=== PATIENT | female | born 1980 | race Asian ===

== ENCOUNTER 2017-07-04 16:18 | Outpatient (CLI) | payer BC | END 2017-07-04 20:19 | disposition home or self-care (01) | LOC: SRD 16:18 | PROVIDERS: ATTEND Family Medicine | DX: R76.11 Nonspecific reaction to tuberculin skin test without active tuberculosis (principal) | CPT/HCPCS: 71045 ==

== ENCOUNTER 2017-09-26 17:45 | Inpatient (IN) | payer BC ==
[~2017-09-26] VITALS: Ht 147.3 cm; Wt 63.5 kg
[2017-09-26 18:28] VITALS: BP_SYST 123
[2017-09-26] MEDS ORDERED: LR 1,000 ML IV ONE (19:08)
[2017-09-26] MEDS ORDERED: OXYTOCIN/0.9 % SODIUM CHLORIDE 1,000 ML IV SCH (19:08)
[2017-09-26] MEDS ORDERED: TERBUTALINE SULFATE 1 MG/ML VIAL SUBCUT ONE (19:15)
[2017-09-26] MEDS ORDERED: NALBUPHINE HCL 10 MG/ML AMP IVP PRN (19:15)
[2017-09-26] MEDS: LR 1,000 ML IV SCH (19:45)
[2017-09-26 19:57] LABS: BASOPHILS % (AUTO) 0.3 % (0.0-2.0); EOSINOPHILS # (AUTO) 0.1 K/uL (0.0-0.4); EOSINOPHILS % (AUTO) 1.5 % (0.0-4.0); HEMATOCRIT 31.9 % (36-48); LYMPHOCYTES # (AUTO) 1.5 K/uL (1.0-5.5); LYMPHOCYTES % (AUTO) 16.2 % (20.5-51.5); MEAN CORPUSCULAR HEMOGLOBIN 22 pg (27-31); MEAN CORPUSCULAR HGB CONC 31 % (32-36); MEAN CORPUSCULAR VOLUME 71 fL (79.0-98.0); MONOCYTES # (AUTO) 0.6 K/uL (0.0-1.0); MONOCYTES % (AUTO) 6.3 % (1.7-9.3); NEUTROPHILS % (AUTO) 75.7 % (40.0-70.0); PLATELET COUNT (AUTO) 299 K/uL (130-430); RED BLOOD CELL COUNT(AUTO) 4.49 MIL/uL (4.2-6.2); RED CELL DISTRIBUTION WIDTH 14.5 % (9.0-15.0); WHITE BLOOD COUNT (AUTO) 9.2 K/uL (4.8-10.8)
[2017-09-26] MEDS ORDERED: fentaNYL CITRATE/PF 100 MCG/2 ML AMP ONE (20:24)
[2017-09-26] MEDS ORDERED: ROPIVACAINE 0.2% 100 ML ONE (20:25)
[2017-09-26] MEDS ORDERED: LR 500 ML IV ONE (20:41)
[2017-09-26] MEDS ORDERED: FENT2mCg/mL-ROPIVA0.2%/NS EPID 150 ML EP SCH (20:45)
[2017-09-27] MEDS: LR 1,000 ML IV SCH (02:40)
[2017-09-27] MEDS ORDERED: OXYTOCIN/0.9 % SODIUM CHLORIDE 1,000 ML IV SCH (06:04)
[2017-09-27] MEDS ORDERED: OXYTOCIN/0.9 % SODIUM CHLORIDE 1,000 ML IV ONE (06:04)
[2017-09-27] MEDS ORDERED: HYDROCORTISONE 0.5%, 28.35 GM TOPICAL CREAM TP PRN (06:15)
[2017-09-27] MEDS ORDERED: MEASLES,MUMPS&RUBELLA VACC/PF 12500 UNIT/0.5 ML VIAL SUBQ PRN (06:15)
[2017-09-27] MEDS ORDERED: DIPH-TET-PERTUS Vaccine 0.5 ML VIAL (ADACEL) I.M. PRN (06:15)
[2017-09-27] MEDS ORDERED: ANUSOL 1 EA SUPP.RECT (PREPARATION H) RC PRN (06:15)
[2017-09-27] MEDS ORDERED: LANOLIN 7 GM OINT. TP PRN (06:15)
[2017-09-27] MEDS ORDERED: RHO(D) IMMUNE GLOBULIN/MALTOSE 1500 UNITS/1.3 ML (WINHRO) IM PRN (06:15)
[2017-09-27] MEDS ORDERED: SENNOSIDES/DOCUSATE SODIUM 1 TAB TABLET(SENOKOT-S) PO PRN (06:15)
[2017-09-27] MEDS ORDERED: OXYCODONE/ACETAMINOPHEN 5-325 TABLET PO PRN (06:15)
[2017-09-27] MEDS ORDERED: METHYLERGONOVINE MALEATE 0.2 MG TABLET PO PRN (06:15)
[2017-09-27] MEDS ORDERED: DERMOPLAST SPRAY TP PRN (06:15)
[2017-09-27] MEDS ORDERED: WITCH HAZEL LEAF 1 MED.PAD MED.PAD TP PRN (06:15)
[2017-09-27] MEDS: IBUPROFEN 600 MG TABLET PO SCH ×4 (07:03→23:52)
[2017-09-27] MEDS: OXYCODONE/ACETAMINOPHEN 5-325 TABLET PO PRN ×2 (09:56→22:09)
[2017-09-27] MEDS ORDERED: TEMAZEPAM 15 MG CAPSULE PO PRN (21:00)
[2017-09-27] MEDS: DOCUSATE SODIUM 100 MG CAPSULE PO PRN (22:09)
[2017-09-28] MEDS: DOCUSATE SODIUM 100 MG CAPSULE PO PRN (05:45)
[2017-09-28] MEDS: IBUPROFEN 600 MG TABLET PO SCH ×4 (05:45→23:47)
[2017-09-28] MEDS: OXYCODONE/ACETAMINOPHEN 5-325 TABLET PO PRN (08:26)
[2017-09-28 09:24] LABS: MEAN CORPUSCULAR HGB CONC 31 % (32-36)
[2017-09-28 09:39] LABS: HEMATOCRIT 30.9 % (36-48); HEMOGLOBIN 9.4 g/dL (12.0-16.0); MEAN CORPUSCULAR HEMOGLOBIN 21 pg (27-31)
[2017-09-28 09:47] LABS: BASOPHILS % (AUTO) 0.3 % (0.0-2.0); EOSINOPHILS # (AUTO) 0.4 K/uL (0.0-0.4); EOSINOPHILS % (AUTO) 2.9 % (0.0-4.0); LYMPHOCYTES % (AUTO) 13.2 % (20.5-51.5); MEAN CORPUSCULAR VOLUME 70 fL (79.0-98.0); MONOCYTES # (AUTO) 0.6 K/uL (0.0-1.0); MONOCYTES % (AUTO) 4.2 % (1.7-9.3); NEUTROPHILS # (AUTO) 11.8 K/uL (1.8-7.7); NEUTROPHILS % (AUTO) 79.4 % (40.0-70.0); RED BLOOD CELL COUNT(AUTO) 4.41 MIL/uL (4.2-6.2); RED CELL DISTRIBUTION WIDTH 14.7 % (9.0-15.0); WHITE BLOOD COUNT (AUTO) 14.8 K/uL (4.8-10.8)
[2017-09-28 09:49] LABS: PLATELET COUNT (AUTO) 247 K/uL (130-430)
[2017-09-29] MEDS: IBUPROFEN 600 MG TABLET PO SCH (05:45)
[2017-09-29] MEDS: DOCUSATE SODIUM 100 MG CAPSULE PO PRN (06:14)
== END 2017-09-29 10:00 | disposition home or self-care (01) | DRG 775 ==
LOC: INTOOBSV 17:45 → OBSVTOIN 17:45 → SPU 17:45 → UNDOADMOB 17:45 → SPU 19:00 → OBSVTOIN 19:00
PROVIDERS: ADMIT Obstetrics & Gynecology; ATTEND Obstetrics & Gynecology
PROC: 10E0XZZ Delivery of Products of Conception, External Approach (ICD-10-PCS; principal; 2017-09-27)
PROC: 3E0R3BZ Introduction of Anesthetic Agent into Spinal Canal, Percutaneous Approach (ICD-10-PCS; 2017-09-27)
PROC: 00HU33Z Insertion of Infusion Device into Spinal Canal, Percutaneous Approach (ICD-10-PCS; 2017-09-27)
DX: O99.284 Endocrine, nutritional and metabolic diseases complicating childbirth (principal); O69.81X0 Labor and delivery complicated by cord around neck, without compression, not applicable or unspecified; E06.3 Autoimmune thyroiditis; Z3A.39 39 weeks gestation of pregnancy; Z37.0 Single live birth
CPT/HCPCS: 36415; 81002-TC; 85025; 86592; 86886; 86900; 86901; 94760; J2300; J2590; J2795; J3010; J7120